=== PATIENT | female | born 1980 | race Caucasian/White ===

== ENCOUNTER 2023-10-19 22:46 | Emergency (ER) | payer OTHER | END 2023-10-20 00:25 | disposition home or self-care (01) | LOC: JP.ED 22:46 | DX: S66.911A Strain of unspecified muscle, fascia and tendon at wrist and hand level, right hand, initial encounter (principal); Z90.710 Acquired absence of both cervix and uterus; W01.0XXA Fall on same level from slipping, tripping and stumbling without subsequent striking against object, initial encounter | CPT/HCPCS: 29125; 731102650; 73110-50; 99283 ==

== ENCOUNTER 2025-09-15 15:28 | Emergency (ER) | payer MEDICAID, OTHER ==
[2025-09-15] MEDS: Ketorolac 15 MG/ML SDV IM ONE (18:45)
== END 2025-09-15 18:50 | disposition home or self-care (01) ==
LOC: JP.ED 15:28
DX: S43.421A Sprain of right rotator cuff capsule, initial encounter (principal); E78.00 Pure hypercholesterolemia, unspecified; E66.9 Obesity, unspecified; Z79.899 Other long term (current) drug therapy; Z87.891 Personal history of nicotine dependence; Z90.89 Acquired absence of other organs; X58.XXXA Exposure to other specified factors, initial encounter
CPT/HCPCS: 73200; 76377; 96372; 99283; A9270; J1885